=== PATIENT | male | born 1945 | race Caucasian/White ===

== ENCOUNTER → 2016-09-12 | Outpatient (CLI) | payer MEDICARE | END | disposition home or self-care (01) | LOC: PCVCIMAG 09:44 | PROVIDERS: ATTEND Internal Medicine | DX: I25.10 Atherosclerotic heart disease of native coronary artery without angina pectoris (principal); I25.5 Ischemic cardiomyopathy; E78.5 Hyperlipidemia, unspecified; C49.A0 Gastrointestinal stromal tumor, unspecified site; I65.29 Occlusion and stenosis of unspecified carotid artery; R05 Cough; Z86.711 Personal history of pulmonary embolism | CPT/HCPCS: 80061; 93005; 93306; G0463 ==

== ENCOUNTER → 2016-11-29 | Outpatient (CLI) | payer MEDICARE | END | disposition home or self-care (01) | LOC: PCVCCLINIC 14:40 | PROVIDERS: ATTEND Internal Medicine | DX: M79.605 Pain in left leg (principal); Z86.718 Personal history of other venous thrombosis and embolism | CPT/HCPCS: 93971 ==

== ENCOUNTER → 2017-02-12 | Outpatient (CLI) | payer MEDICARE ==
--- NOTE | 2017-02-12 10:26 | PCVCIMAG ---
APPROVED REPORT Indications Stenosis Doppler Spectral Velocity Analysis PSV / EDVPSV / EDV ECA (R) 85 / 8 cm/sECA (L) 55 / 9 cm/s dICA (R) 50 / 20 cm/sdICA (L) 74 / 27 cm/s Charli (R) 63 / 24 cm/smICA (L) 79 / 27 cm/s pICA (R) 72 / 27 cm/spICA (L) 84 / 21 cm/s Bulb (R) 71 / 17 cm/sBulb (L) 76 / 21 cm/s dCCA (R) 72 / 15 cm/sdCCA (L) 82 / 18 cm/s mCCA (R) 89 / 17 cm/smCCA (L) 95 / 21 cm/s Vert (R) 45 / 13 cm/sVert (L) 51 / 16 cm/s Findings The right carotid bulb has no significant plaque. The right proximal internal carotid artery shows no significant stenosis. The right common carotid artery shows no significant stenosis. The right external carotid artery shows no significant stenosis. The left carotid bulb has mild heterogeneous plaque. The left proximal internal carotid artery shows <40% stenosis. The left common carotid artery shows no significant stenosis. The left external carotid artery shows no significant stenosis. Conclusion 1. Right internal carotid artery plaquing 2. Left internal carotid artery stenosis (<40%) 3. Antegrade vertebral flow
--- NOTE | 2017-02-12 11:03 | PCVCIMAG ---
APPROVED REPORT Exam: Stress Echocardiogram Indication: CAD , CAD s/p PCI, Hypertension Stress Nurse: Carmela Reese RN Status: routine HR: 49 bpm Rhythm: Bradycardia Medical History Medical History: CAD s/p stent Procedure The patient underwent an Exercise Stress Test using the Mauro Protocol. Blood pressure, heart rate, and EKG were monitored. An Echocardiogram was performed by medical records technician in four stages in quad fashion. At peak stress, four selected images were obtained and placed side by side with resting images for comparison. Stress Test Details Stress Test: Exercise stress testing was performed using a Mauro protocol. HR Resting HR: 49 bpmMax Heart Rate (APMHR): 149 bpm Max HR Achieved: 130 bpmTarget HR (85% APMHR): 126 bpm % of APMHR: 87 BP Resting BP: 132/64 mmHg Max BP: 170/70 mmHg Recovery BP: 140/70 mmHg ECG Resting ECG: Sinus Bradycardia Stress ECG: Sinus Rhythm ST Change: Normal Maximum ST Deviation: 0 mm Arrhythmia: Occasional PVC Recovery ECG: Sinus Rhythm Recovery ST Deviation: 0 mm Clinical Reason for Termination: Dyspnea Exercise duration: 10 min 21 sec Highest Stage Achieved: Stage 4: 4.2 mph at 16% grade. Exercise capacity: 13.4 METs Angina Score: None Stress ECG Conclusion Clinical: Non-ischemic ECG: Non-ischemic Nobles treadmill score predicts low risk for adverse myocardial events. Nobles Treadmill Score is 10.0 which is Low risk. Pre-Stress Echo The resting Echocardiogram showed normal left ventricular contractility with an estimated Ejection Fraction of about >55%. Normal wall motion in all segments on baseline images. Post-Stress Echo The stress Echocardiogram showed normal left ventricular contractility with an estimated Ejection Fraction of about 60-65%. Normal augmentation of wall motion in all segments on post stress images. Clinical No clinical or ECG evidence for ischemia. Conclusion Clinical Response: Non-ischemic Stress ECG Response: Non-ischemic Stress Echo Images: Non-ischemic Normal stress echocardiogram with maximal exercise stress. <Conclusion> Normal stress echocardiogram with maximal exercise stress.
== END | disposition home or self-care (01) ==
LOC: PCVCIMAG 09:47
PROVIDERS: ATTEND Internal Medicine
DX: I65.23 Occlusion and stenosis of bilateral carotid arteries (principal); I25.10 Atherosclerotic heart disease of native coronary artery without angina pectoris; I10 Essential (primary) hypertension; Z98.61 Coronary angioplasty status
CPT/HCPCS: 93325; 93351; 93880

== ENCOUNTER → 2017-05-29 | Outpatient (CLI) | payer MEDICARE | END | disposition home or self-care (01) | LOC: PCVCCLINIC 13:31 | PROVIDERS: ATTEND Internal Medicine | DX: I25.10 Atherosclerotic heart disease of native coronary artery without angina pectoris (principal); I25.5 Ischemic cardiomyopathy; I65.23 Occlusion and stenosis of bilateral carotid arteries; E78.5 Hyperlipidemia, unspecified; I44.0 Atrioventricular block, first degree; I77.89 Other specified disorders of arteries and arterioles; E03.9 Hypothyroidism, unspecified; Z79.82 Long term (current) use of aspirin; Z95.5 Presence of coronary angioplasty implant and graft | CPT/HCPCS: 80061; 93005; G0463 ==

== ENCOUNTER → 2017-11-27 | Outpatient (CLI) | payer MEDICARE | END | disposition home or self-care (01) | LOC: PCVCCLINIC 13:45 | DX: I25.10 Atherosclerotic heart disease of native coronary artery without angina pectoris (principal); I25.5 Ischemic cardiomyopathy; I65.23 Occlusion and stenosis of bilateral carotid arteries; E78.5 Hyperlipidemia, unspecified; G61.81 Chronic inflammatory demyelinating polyneuritis; Z95.5 Presence of coronary angioplasty implant and graft; Z79.82 Long term (current) use of aspirin; Z79.899 Other long term (current) drug therapy | CPT/HCPCS: 80061; 93005; G0463 ==

== ENCOUNTER → 2018-11-28 | Outpatient (CLI) | payer MEDICARE | END | disposition home or self-care (01) | LOC: PCVCCLINIC 14:28 | PROVIDERS: ATTEND Internal Medicine | DX: I25.10 Atherosclerotic heart disease of native coronary artery without angina pectoris (principal); I25.5 Ischemic cardiomyopathy; I65.23 Occlusion and stenosis of bilateral carotid arteries; E78.5 Hyperlipidemia, unspecified; G61.81 Chronic inflammatory demyelinating polyneuritis; Z95.5 Presence of coronary angioplasty implant and graft; E03.9 Hypothyroidism, unspecified; Z79.82 Long term (current) use of aspirin | CPT/HCPCS: 93005; G0463 ==

== ENCOUNTER → 2019-07-28 | Outpatient (CLI) | payer MEDICARE ==
--- NOTE | 2019-07-28 14:39 | PCVCIMAG ---
APPROVED REPORT Indications Stenosis Risk Factors CAD, Doppler Spectral Velocity Analysis PSV / EDVPSV / EDV ECA (R) 74 / 10 cm/sECA (L) 70 / 10 cm/s dICA (R) 78 / 32 cm/sdICA (L) 61 / 21 cm/s Charli (R) 83 / 36 cm/smICA (L) 64 / 22 cm/s pICA (R) 62 / 18 cm/spICA (L) 68 / 21 cm/s Bulb (R) 43 / 13 cm/sBulb (L) 59 / 18 cm/s dCCA (R) 73 / 19 cm/sdCCA (L) 90 / 27 cm/s mCCA (R) 82 / 16 cm/smCCA (L) 94 / 17 cm/s Vert (R) 52 / 14 cm/sVert (L) 44 / 13 cm/s ICA/CCA 0.76 ICA/CCA 1.02 Basic Measurements Blood Pressure: Pulses: Right Left RightLeft Brachial(Sitting) 122/40gaEs863/76mmHgTemporal Real Time B-Mode Imaging Vert. (R)AntegradeVert. (L)Antegrade Findings RIGHT CAROTID: The carotid bulb has no significant plaque. The proximal internal carotid artery shows no significant stenosis. The common carotid artery shows no significant stenosis. The external carotid artery shows no significant stenosis. LEFT CAROTID: The carotid bulb has mild plaque. The proximal internal carotid artery shows <40% stenosis. The common carotid artery shows no significant stenosis. The external carotid artery shows no significant stenosis. Conclusion No significant stenosis of the right internal carotid artery with no significant plaque. <40% stenosis of the left internal carotid artery with mild plaque. No change since January 2017.
--- NOTE | 2019-07-28 16:57 | PCVCIMAG ---
APPROVED REPORT Study performed: 07/28/2019 14:43:07 Exam: Stress Echocardiogram Indication: CAD s/p PCI, dyspnea on exertion Patient Location: Echo lab Stress Nurse: Ayla Buchanan RN Status: routine Ht: 6 ft 1 in HR: 69 bpm BP: 110/70 mmHg Rhythm: NSR Procedure The patient underwent an Exercise Stress Test using the Mauro Protocol. Blood pressure, heart rate, and EKG were monitored. An Echocardiogram was performed by a and p technician in four stages in quad fashion. At peak stress, four selected images were obtained and placed side by side with resting images for comparison. Stress Test Details Stress Test: Exercise stress testing was performed using a Mauro protocol. HR Resting HR: 69 bpmMax Heart Rate (APMHR): 146 bpm Max HR Achieved: 144 bpmTarget HR (85% APMHR): 124 bpm % of APMHR: 98 Recovery HR: 90 bpm HR response to stress: Normal HR response to stress BP Resting BP: 110/70 mmHg Max BP: 204/76 mmHg Recovery BP: 142/78 mmHg BP response to stress: Normal blood pressure response to stress. ECG Resting ECG: Sinus Rhythm Stress ECG: Sinus Rhythm ST Change: Normal Maximum ST Deviation: 0 mm Arrhythmia: None Recovery ECG: Sinus Rhythm Recovery ST Change: Normal Recovery ST Deviation: 0 mm Recovery Arrhythmia: None Clinical Reason for Termination: Maximal effort Stress Symptoms: Leg Fatigue Exercise duration: 9 min 16 sec Highest Stage Achieved: Stage 4: 4.2 mph at 16% grade. Exercise capacity: 10.9 METs Overall Exercise Capacity for Age: Excellent Scale: Active Angina Score: None Stress ECG Conclusion Clinical: Non-ischemic ECG: Non-ischemic Nobles Treadmill Score is 9.0 which is Low risk. Pre-Stress Echo The resting Echocardiogram showed normal left ventricular contractility with an estimated Ejection Fraction of about >55%. The resting echocardiogram demonstrated normal wall motion in all wall segments. Post-Stress Echo The stress Echocardiogram showed normal left ventricular contractility with an estimated Ejection Fraction of about 65%. Compared to rest, there were no stress-induced wall motion abnormalities. Clinical No clinical or ECG evidence for ischemia. Conclusion Clinical Response: Non-ischemic Exercise Capacity: Superior Stress ECG Response: Non-ischemic Stress Echo Images: Non-ischemic The left ventricle is normal in size and wall thickness in both the rest and stress images. Mild mitral regurgitation without stenosis. No regurgitation or stenosis present on pulmonic,tricuspid and aortic valves. Normal stress echocardiogram with maximal exercise stress. Other Information Study Quality: Adequate <Conclusion> The left ventricle is normal in size and wall thickness in both the rest and stress images. Mild mitral regurgitation without stenosis. No regurgitation or stenosis present on pulmonic,tricuspid and aortic valves. Normal stress echocardiogram with maximal exercise stress.
== END | disposition home or self-care (01) ==
LOC: PCVCIMAG 13:57
PROVIDERS: ATTEND Internal Medicine
DX: I34.0 Nonrheumatic mitral (valve) insufficiency (principal); I25.10 Atherosclerotic heart disease of native coronary artery without angina pectoris; I65.22 Occlusion and stenosis of left carotid artery; I25.5 Ischemic cardiomyopathy; E78.5 Hyperlipidemia, unspecified; G61.81 Chronic inflammatory demyelinating polyneuritis; Z95.5 Presence of coronary angioplasty implant and graft
CPT/HCPCS: 93325; 93351; 93880